=== PATIENT | female | born 1965 | race Asian ===

== ENCOUNTER 2020-08-27 08:24 | Day surgery (SDC) | payer OTHER ==
[2020-08-22 15:28] VITALS: BMI 17.8
[2020-08-27] MEDS ORDERED: LIDOCAINE HCL/PF 2% SDV 5ML VIAL ONE (08:59)
[2020-08-27] MEDS ORDERED: PROPOFOL 20 ML ONE (08:59)
[2020-08-27 10:17] VITALS: BP 114/68; PULSE 62; TEMP 97.6
== END 2020-08-27 10:17 | disposition home or self-care (01) ==
LOC: FASU-ENDO 08:24
PROVIDERS: ATTEND Internal Medicine Gastroenterology
PROC: 0DB78ZX Excision of Stomach, Pylorus, Via Natural or Artificial Opening Endoscopic, Diagnostic (ICD-10-PCS; 2020-08-27)
PROC: 0DB48ZX Excision of Esophagogastric Junction, Via Natural or Artificial Opening Endoscopic, Diagnostic (ICD-10-PCS; 2020-08-27)
PROC: 0D748ZZ Dilation of Esophagogastric Junction, Via Natural or Artificial Opening Endoscopic (ICD-10-PCS; 2020-08-27)
PROC: 0DB98ZX Excision of Duodenum, Via Natural or Artificial Opening Endoscopic, Diagnostic (ICD-10-PCS; principal; 2020-08-27 09:18)
DX: K29.70 Gastritis, unspecified, without bleeding (principal); K22.2 Esophageal obstruction; Z98.0 Intestinal bypass and anastomosis status
CPT/HCPCS: 88305-TC; 88342-TC